=== PATIENT | female | born 1985 | race Caucasian/White ===

== ENCOUNTER 2018-10-20 05:04 | Emergency (ER) | payer OTHER ==
[2018-10-20] MEDS: ACETAMINOPHEN 325 MG TAB PO (05:49)
== END 2018-10-20 06:40 | disposition home or self-care (01) ==
LOC: FTE 05:04
DX: O99.89 Other specified diseases and conditions complicating pregnancy, childbirth and the puerperium (principal); R50.9 Fever, unspecified; Z3A.33 33 weeks gestation of pregnancy
CPT/HCPCS: 87400; 99283

== ENCOUNTER 2018-10-20 06:50 | Outpatient (CLI) | payer OTHER | END 2018-10-20 07:40 | disposition home or self-care (01) | LOC: OBT 06:50 → L-D 06:50 → OBT 07:40 | DX: O26.893 Other specified pregnancy related conditions, third trimester (principal); J00 Acute nasopharyngitis [common cold]; Z3A.33 33 weeks gestation of pregnancy | CPT/HCPCS: Z7500 ==

== ENCOUNTER 2018-11-30 16:50 | Emergency (ER) | payer SELFPAY, OTHER | END 2018-11-30 20:56 | disposition left against medical advice (07) | LOC: FTE 20:56 | DX: Z53.21 Procedure and treatment not carried out due to patient leaving prior to being seen by health care provider (principal) ==